=== PATIENT | male | born 1945 | race Two or more races ===

== ENCOUNTER 2017-11-18 14:39 | Outpatient (CLI) | payer OTHER ==
[~2017-11-18 14:39] MED LIST: CIPRO500 MG PO
== END 2017-11-18 14:41 | disposition home or self-care (01) ==
LOC: LAB 14:39
DX: I11.9 Hypertensive heart disease without heart failure (principal); E78.4 Other hyperlipidemia; E11.36 Type 2 diabetes mellitus with diabetic cataract; E11.39 Type 2 diabetes mellitus with other diabetic ophthalmic complication; J45.30 Mild persistent asthma, uncomplicated; K40.90 Unilateral inguinal hernia, without obstruction or gangrene, not specified as recurrent; Z12.11 Encounter for screening for malignant neoplasm of colon; N40.0 Benign prostatic hyperplasia without lower urinary tract symptoms; I69.352 Hemiplegia and hemiparesis following cerebral infarction affecting left dominant side; I69.364 Other paralytic syndrome following cerebral infarction affecting left non-dominant side; M19.90 Unspecified osteoarthritis, unspecified site

== ENCOUNTER → 2017-11-19 09:24 | Outpatient (CLI) | payer OTHER | END | disposition home or self-care (01) | LOC: LAB 09:24 | DX: I11.9 Hypertensive heart disease without heart failure (principal); E78.4 Other hyperlipidemia; E11.36 Type 2 diabetes mellitus with diabetic cataract; E11.39 Type 2 diabetes mellitus with other diabetic ophthalmic complication; J45.30 Mild persistent asthma, uncomplicated; K40.90 Unilateral inguinal hernia, without obstruction or gangrene, not specified as recurrent; Z12.11 Encounter for screening for malignant neoplasm of colon; N40.0 Benign prostatic hyperplasia without lower urinary tract symptoms; I69.352 Hemiplegia and hemiparesis following cerebral infarction affecting left dominant side; I69.364 Other paralytic syndrome following cerebral infarction affecting left non-dominant side; M19.90 Unspecified osteoarthritis, unspecified site ==